=== PATIENT | female | born 1940 | race Caucasian/White ===

== ENCOUNTER 2024-04-09 12:47 | Outpatient (CLI) | payer OTHER, MEDICARE | END 2024-04-09 12:48 | disposition home or self-care (01) | LOC: MRI 12:47 | PROVIDERS: ATTEND Orthopaedic Surgery | DX: M43.16 Spondylolisthesis, lumbar region (principal); M43.17 Spondylolisthesis, lumbosacral region; M47.816 Spondylosis without myelopathy or radiculopathy, lumbar region; M47.817 Spondylosis without myelopathy or radiculopathy, lumbosacral region; M47.815 Spondylosis without myelopathy or radiculopathy, thoracolumbar region | CPT/HCPCS: 72148 ==